=== PATIENT | female | born 1995 | race Caucasian/White ===

== ENCOUNTER 2016-04-27 15:44 | Emergency (ER) | payer SELFPAY ==
[~2016-04-27] VITALS: Ht 177.8 cm; Wt 54.5 kg
[2016-04-27 16:09] VITALS: BP 109/73; PULSE 86; RESP 20; TEMP 97.8; O2SAT 97
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
== END 2016-04-27 17:26 | disposition home or self-care (01) ==
LOC: PHED 15:44
DX: H53.8 Other visual disturbances (principal)
CPT/HCPCS: 99283